=== PATIENT | male | born 1970 | race Caucasian/White ===

== ENCOUNTER 2023-07-16 11:52 | Emergency (ER) | payer MEDICARE, MEDICAID ==
[2023-07-16 12:33] VITALS: BP 112/74; PULSE 96
== END 2023-07-16 13:16 | disposition home or self-care (01) ==
LOC: JP.ED 11:52
DX: M54.50 Low back pain, unspecified (principal); F17.210 Nicotine dependence, cigarettes, uncomplicated; Z79.899 Other long term (current) drug therapy
CPT/HCPCS: 99283